=== PATIENT | male | born 1980 ===

== ENCOUNTER 2018-06-14 18:46 | Emergency (ER) | payer SELFPAY ==
[2018-06-14 18:58] VITALS: O2SAT 98
--- NOTE | 2018-06-14 19:47 | ED PDOC ---
HPI: General Adult Time Seen by Provider: 06/14/18 19:00 Chief Complaint (Nursing): Weakness/Neurological Deficit Chief Complaint (Provider): Right facial weakness History Per: Patient Onset/Duration Of Symptoms: Days (x2) Current Symptoms Are (Timing): Still Present Additional Complaint(s): Juan F Calvert, a 37 year old male with a past medical history of hypertension, presents to the ED complaining of right facial weakness onset x2 days. Patient states he had a funny feeling on the right side of his neck and head Sunday approximately 2300, and in the morning, he thought his face looked lopsided in the mirror. He reports it progressed to whole right face weakness. Yesterday, he went to the hospital, and he received a CAT scan and blood work. He states he was diagnosed with facial weakness and hypertension, and he was discharged home with ibuprofen. Patient reports facial weakness has gotten worse, resulting in his ED visit today. He states a similar episode when he was 9 years old. At that time he was in [place], and he reports being given bayodecta, a multivitamin. He says the right facial weakness is associated with a fullness feeling in his right ear and trouble tasting on the right side of his mouth. He denies weakness elsewhere. PCP: none provided. Past Medical History Reviewed: Historical Data, Nursing Documentation, Vital Signs Vital Signs: Last Vital Signs Temp 99 F 06/14/18 18:54 Pulse 91 H 06/14/18 18:54 Resp 16 06/14/18 18:54 BP 164/105 H 06/14/18 18:54 Pulse Ox 98 06/14/18 18:54 - Medical History PMH: HTN - Surgical History Surgical History: No Surg Hx - Family History Family History: States: No Known Family Hx - Social History Current smoker - smoking cessation education provided: No Alcohol: None Drugs: Denies - Home Medications Home Medications: Ambulatory Orders Medication Instructions Recorded Polyethylene Glycol/Polyvinyl 2 drop OD PRN PRN #1 bottle 06/14/18 [Artificial Tears] RX: Acyclovir [Zovirax] 400 mg PO 5XD #50 tablet 06/14/18 RX: Non-Formulary 1 ea OD HS #1 ea 06/14/18 predniSONE [Prednisone] 60 mg PO DAILY 10 Days tab 06/14/18 - Allergies Allergies/Adverse Reactions: Allergies Allergy/AdvReac Type Severity Reaction Status Date / Time No Known Allergies Allergy Verified 06/14/18 18:54 Review of Systems ROS Statement: Except As Marked, All Systems Reviewed And Found Negative Constitutional: Negative for: Weakness (weakness other than right facial weakness) ENT: Positive for: Other (right facial weakness, fullness feeling in right ear, trouble taste in right side of mouth) Physical Exam - Reviewed Nursing Documentation Reviewed: Yes Vital Signs Reviewed: Yes - Physical Exam Appears: Positive for: Non-toxic, No Acute Distress Skin: Positive for: Warm, Dry Eye Exam: Positive for: EOMI, PERRL, Other (right lower eyelid ptosis). Negative for: Nystagmus ENT: Positive for: Normal ENT Inspection, Pharynx Is (clear) Neck: Positive for: Painless ROM, Supple Cardiovascular/Chest: Positive for: Regular Rate, Rhythm. Negative for: Murmur Respiratory: Positive for: Normal Breath Sounds. Negative for: Respiratory Distress Gastrointestinal/Abdominal: Positive for: Soft. Negative for: Tenderness Back: Positive for: Normal Inspection. Negative for: Decreased ROM Extremity: Positive for: Normal ROM, Other (5/5 strength in x4 extremities). Negative for: Deformity Neurologic/Psych: Positive for: Alert, Oriented (x3), Cerebellar Tests (normal), Gait (normal), Facial Droop (right facial droop involving brow, slight dysarthria, tongue is midline) - ECG O2 Sat by Pulse Oximetry: 98 (RA) Pulse Ox Interpretation: Normal Medical Decision Making Medical Decision Making: Time: 1899 Initial Impression: Palafox's palsy and hypertension Initial Plan: --reviewed patients paperwork for cbc and chemistry tests at previous visit and results were normal. --toradol 30 mg IM ----- Scribe Attestation: Documented by Frakni Viramontes, acting as a scribe for Lashonda Brooks MD. Provider Scribe Attestation: All medical record entries made by the Scribe were at my direction and personally dictated by me. I have reviewed the chart and agree that the record accurately reflects my personal performance of the history, physical exam, medical decision making, and the department course for this patient. I have also personally directed, reviewed, and agree with the discharge instructions and disposition. Disposition - Clinical Impression Clinical Impression: Palafox's palsy, Hypertension - Disposition Referrals: [facility] [Outside] - 06/17/18 Disposition: Routine/Home Disposition Time: 19:45 Condition: STABLE Additional Instructions: [facility] Prescriptions: RX: Acyclovir [Zovirax] 400 mg PO 5XD #50 tablet RX: Non-Formulary 1 ea OD HS #1 ea Polyethylene Glycol/Polyvinyl [Artificial Tears] 2 drop OD PRN PRN #1 bottle PRN Reason: Dry Eyes predniSONE [Prednisone] 60 mg PO DAILY 10 Days tab Instructions: High Blood Pressure (DC), Palafox's Palsy (DC) Forms: [facility] ED School/Work Excuse Print Language: [place]
[2018-06-14 19:59] VITALS: BP 143/94; PULSE 71; RESP 18; TEMP 98.2
== END 2018-06-14 20:00 | disposition home or self-care (01) ==
LOC: H.ER 18:46
DX: G51.0 Bell's palsy (principal); I10 Essential (primary) hypertension
CPT/HCPCS: 96372; 99285; J1885